=== PATIENT | male | born 1985 | race Caucasian/White ===

== ENCOUNTER 2022-08-15 22:18 | Emergency (ER) | payer SELFPAY ==
[~2022-08-15] VITALS: Ht 175.3 cm; Wt 86.2 kg
[2022-08-15] MEDS ORDERED: KETOROLAC TROMETHAMINE 60 MG/2 ML VIAL IM STA (23:17)
[2022-08-15] MEDS ORDERED: ONDANSETRON ODT4 MG PO (23:38)
[2022-08-15] MEDS ORDERED: ACETAMINOPHEN-1 EAC4 PO (23:38)
[2022-08-16] VITALS: BP 134/97
== END 2022-08-16 00:04 | disposition home or self-care (01) ==
LOC: ER 22:28
DX: S93.402A Sprain of unspecified ligament of left ankle, initial encounter (principal); X50.1XXA Overexertion from prolonged static or awkward postures, initial encounter; Y93.39 Activity, other involving climbing, rappelling and jumping off; Y99.8 Other external cause status
CPT/HCPCS: 73610; 99283; J1885

== ENCOUNTER 2022-08-21 15:41 | Emergency (ER) | payer SELFPAY ==
[~2022-08-21] VITALS: Ht 175.3 cm; Wt 86.2 kg
[~2022-08-21 15:41] MED LIST: ACETAMINOPHEN-1 EAC4 PO; ONDANSETRON ODT4 MG PO
== END 2022-08-21 17:08 | disposition home or self-care (01) ==
LOC: ER 15:55
DX: M25.572 Pain in left ankle and joints of left foot (principal); S93.492D Sprain of other ligament of left ankle, subsequent encounter; M41.9 Scoliosis, unspecified
CPT/HCPCS: 99283